=== PATIENT | male | born 1985 | race Caucasian/White ===

== ENCOUNTER 2022-11-22 15:37 | Outpatient (REF) | payer MEDICAID, SELFPAY ==
[2022-11-22 16:24] LABS: Hemoglobin A1C 4.8 % (<5.7)
[2022-11-22 16:42] LABS: BUN 15 mg/dL (7-18); CREATININE 1.1 mg/dL (0.70-1.30); Calcium 9.3 mg/dL (8.5-10.1); Chloride 103 mmol/L (98-107); Estimated GFR 87.57 (mL/min/1.73m2); Glucose 105 mg/dL (74-106); HDL Cholesterol 60 mg/dL (40-60); LDL CHOLESTEROL 115 mg/dL (<100); Potassium 4.3 mmol/L (3.5-5.1); Sodium 141 mmol/L (136-145); TSH 3.44 uIU/mL (0.36-3.74)
[2022-11-22 16:44] LABS: Bilirubin Negative (Negative); Blood Negative (Negative); Clarity Clear (Clear); Glucose Negative (Negative); Ketones Negative (Negative); Leukocyte Esterase Negative (Negative); Nitrite Negative (Negative); Urobilinogen 0.2 mg/dL (Up to 0.2)
== END 2022-11-22 15:38 | disposition home or self-care (01) ==
LOC: NCHCN 15:37
PROVIDERS: PCP Family Medicine; Visit Provider Nurse Practitioner Family
DX: R35.0 Frequency of micturition (principal); Z86.59 Personal history of other mental and behavioral disorders
CPT/HCPCS: 80048; 83721; 81003; 83036; 83718; 84443

== ENCOUNTER 2022-12-11 04:37 | Outpatient (CLI) | payer MEDICAID, SELFPAY ==
[2022-12-11] MEDS: Methacholine 100 MG VIAL IH (17:04)
[2022-12-11] MEDS: Inhaler, Assist Device 1 EACH MC (17:05)
[2022-12-11] MEDS: Albuterol HFA 18 GM 200 PUFF INH IH (17:05)
--- NOTE | 2022-12-12 09:33 | W.PFT ---
Date of service: 12/11/22 Time of Service: 15:00 Pulmonary Function Test Result Indications: Dyspnea Interpretation Spirometry: There is no airflow limitation. There was a 9% decrease in FEV1% with administration of 16mg/mL methacholine. Lung Volumes: There is air trapping and hyperinflation. Diffusion Capacity: Normal diffusion Airway Pressure: Normal airways resistance. Note: Air trapping and hyperinflation with a normal FEV1/FVC ration and a negative methacholine challenge. Clinical Correlation therefore is recommended.
== END 2022-12-11 04:38 | disposition home or self-care (01) ==
LOC: RT 04:37
PROVIDERS: PCP Family Medicine; Visit Provider Nurse Practitioner Family
DX: R06.00 Dyspnea, unspecified (principal)
CPT/HCPCS: 94060; 94070; 94726; 94729; 94010; J7674

== ENCOUNTER → 2023-03-20 00:21 | Outpatient (CLI) | payer MEDICAID, SELFPAY ==
--- NOTE | 2023-03-20 | DI.US_ITS ---
APPROVED REPORT EXAM: Comprehensive 2D, Doppler, and color-flow Echocardiogram Patient Location: Out-Patient Religion Teacher: Lissa Harris RDCS (AE) Indications: Orthopnea Other Information Study Quality: Good Conclusion Normal left ventricular wall thickness and chamber size. Ejection fraction is 60 to 65%. Wall motio n is normal Normal right ventricular size and systolic function Both atria are normal in size There is no structural or hemodynamically significant valvular disease Wall motion Left Ventricle The left ventricle is normal size. The left ventricular systolic function is normal. The left ventric ular ejection fraction is within the normal range. There is normal left ventricular wall thickness. T here is normal LV segmental wall motion. There is no ventricular septal defect visualized. LVEF is 60 -65%. Right Ventricle The right ventricle is normal size. The right ventricular systolic function is normal. Atria The left atrium size is normal. The right atrium size is normal. The interatrial septum is intact wit h no evidence for an atrial septal defect. Aortic Valve The aortic valve is normal in structure. Aortic valve is trileaflet. There is no aortic valvular sten osis. No aortic regurgitation is present. Mitral Valve The mitral valve is normal in structure. No evidence of mitral valve stenosis. Trace mitral regurgita tion. Tricuspid Valve The tricuspid valve is normal in structure. There is no tricuspid valve stenosis. Trace tricuspid reg urgitation. Unable to assess PA pressure. Pulmonic Valve The pulmonary valve is normal in structure. There is no pulmonic valvular stenosis. There is no pulmo demetria valvular regurgitation. Great Vessels The aortic root is normal in size. Ascending aorta is not well visualized. Aortic arch is not well vi sualized. IVC is normal in size and collapses >50% with inspiration. Pericardium There is no pericardial effusion. 2D Dimensions IVSD d PLAX 0.80 cm M: 0.6-1.2 Ao Root d 3.35 cm M: 3.1 - 3.7 LVPW d PLAX 0.79 cm M: 0.6 - 1.2 LVID d PLAX 4.66 cm M: 4.2 - 5.8 LVDs 2.99 cm M: 2.5 - 4.0 LV EF Teichholz 65.3 % FS 35.75 % LV EDV (Teich) 100.1 mL LV ESV (Teich) 34.7 mL M-Mode TAPSE 2.67 cm (M/F) >1.7 Auto EF LV EDV A4C 91.6 mL LV EDV A2C 146.6 mL LV EDV BP 115.3 mL LV ESV A4C 37.0 mL LV ESV A2C 51.1 mL LV ESV BP 43.5 mL LVEF(%) A4C 59.6 % LVEF(%) A2C 65.2 % LVEF(%) BP 62.3 % LV SV A4C 54.6 ml LV SV A2C 95.5 ml LV SV BP 71.8 ml LV CO A4C 3.1 L/min LV CO A2C 5.6 L/min LV CO BP 4.4 L/min HR A4C 57.33 BPM HR A2C 58.35 BPM LV EDV Index (BP) LA Volume LA Length A4C 4.6 cm LA Length A2C 3.9 cm LA Area A4C s 14.17 cm2 LA Area A2C s 10.13 cm2 LA Vol A4C A-L 36.98 mL LA Vol A2C A-L 22.43 mL LA Vol Biplane A-L 31.4 mL LA Vol/BSA A4C A-L LA Vol/BSA A2C A-L LA Vol/BSA BP A-L 18.6 mL/m2 LA Vol A4C MOD 35.0 mL LA Vol A2C MOD 20.9 mL LA Vol BP MOD 29.4 mL RA Volume RA Area A4C 12.0 cm2 RA ESV A4C (A-L) 29.2mL RA Vol/BSA A4C A-L RA Length A4C 4.2 cm RA ESV A4C (MOD) 26.9mL LV Diastology MV E' medial 0.123 (>0.07 m/s) MV E Vmax 0.93 (0.4-1.3 m/s) MV E/E' MED 7.57 (<14) MV A Vmax 0.65 (0.4-1.3 m/s) MV E' lateral 0.190 (>0.1 m/s) E/A Ratio 1.4 MV E/E' LAT 4.90 (<14) MV E' Average 0.157 m/s MV E/E'(average) 5.95 Aortic Valve AoV Vmax 1.03 m/s LVOT Vmax 0.95 m/s AoV Peak Grad 4.2 mmHg LVOT Peak Grad 3.6 mmHg AoV Area (Vmax) 2.87 cm2 LVOT VTI 0.196 m AoV VTI 0.225 m LVOT Mean Grad 1.7 mmHg AoV Mean Rajeev. 0.69 m/s LVOT SV 60.87 mL AoV Mean Grad 2.2 mmHg LVOT Diam s 1.95 cm AoV Area (VTI) 2.71 cm2 Velocity Ratio 0.92 Mitral Valve MV DT 190 (160-240 msec) Pulmonary Valve PV Vmax 1.15 (0.5-1.5 m/s) RVOT Vmax 1.11 m/s PV Peak Grad 5.3 mmHg RVOT Peak Gr. 4.9 mmHg PV Mean Rajeev 0.77 m/s RVOT VTI 0.209 m PV Mean Grad 2.8 mmHg RVOT Mean Gr. 2.8 mmHg Tricuspid Valve TV S' 0.16 m/s
== END ==
PROVIDERS: PCP Family Medicine; Visit Provider Nurse Practitioner Family
DX: R06.01 Orthopnea (principal)
CPT/HCPCS: 93306